=== PATIENT | male | born 1980 | race Caucasian/White ===

== ENCOUNTER 2020-03-17 10:28 | Emergency (ER) | payer OTHER ==
--- NOTE | 2020-03-17 10:53 | TELE ---
HPI Do you have fever,cough or shortness of breath?: Yes - General Reason For Visit: COVID19 Time Seen by Provider: 03/17/20 10:48 History Source: Patient Exam Limitations: No Limitations - History of Present Illness Timing/Duration: intermittent Severity: reports: mild Associated Symptoms: reports: headaches. denies: cough, fever/chills, na usea/vomiting, rash, seizure, shortness of breath, syncope, weakness 03/17/20 10:48 Patient with no significant past medical history present to [facility] urgent care for COVID testing due to having intermittent GOMEZ with malaise for 2 days. 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 Pts is getting tested and pt also wants to be tested for covid. Denies fever, chills, shortness of breath, cough, palpitation. Denies recent travel. Denies any other symptoms. Patient has been taking [id number] medication for his symptoms Review of Systems - Review of Systems Able to Perform ROS?: Yes Limited Lithuanian proficient: No Constitutional: No: Chills, Fever, Malaise HEENTM: No: Symptoms Reported, See HPI, Eye Pain, Blurred Vision, Tearing, Recent change in vision, Double Vision, Cataracts, Ear Pain, Ocular Prothesis, Ear Discharge, Nose Pain, Nose Congestion, Tinnitus, Nose Bleeding, Hearing Loss, Throat Pain, Throat Swelling, Mouth Pain, Dental Problems, Difficulty Swallowing, Mouth Swelling, Other Respiratory: No: Symptoms reported, See HPI, Cough, Orthopnea, Shortness of Breath, SOB with Exertion, SOB at Rest, Stridor, Wheezing, Productive cough, Hemoptysis, Other Cardiac (ROS): No: Symptoms Reported, See HPI, Chest Pain, Edema, Irregular Heart Rate, Lightheadedness, Palpitations, Syncope, Chest Tightness, Other ABD/GI: No: Symptoms Reported, Nausea, Vomiting Musculoskeletal: No: Symptoms Reported Integumentary: No: Symptoms Reported Neurological: Yes: Symptoms reported, See HPI, Headache. No: Numbness, Paresthesia, Unsteady Gait, Dizziness All Other Systems: Reviewed and Negative *Physical Exam - Physical Exam General Appearance: Yes: Nourished, Appropriately Dressed. No: Apparent Distress HEENT: positive: Normal ENT Inspection Respiratory/Chest: negative: Respiratory Distress, Accessory Muscle Use Musculoskeletal: positive: Normal Inspection Extremity: positive: Normal Inspection, Normal Range of Motion Integumentary: positive: Normal Color Neurologic: positive: Fully Oriented, Alert, Normal Mood/Affect, Normal Response - Medical Decision Making 03/17/20 10:53 Patient with no significant past medical history present to [facility] urgent care for COVID testing due to having intermittent GOMEZ with malaise for 2 days. 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 Pts is getting tested and pt also wants to be tested for covid. Denies fever, chills, shortness of breath, cough, palpitation. Denies recent travel. Denies any other symptoms. Patient has been taking [id number] medication for his symptoms Patient afebrile and in no acute distress. Discussed with patient self quarantine instructions if symptomatic until negative test. COVID test and COVID antibody test ordered as per patient request. Patient stable for discharge Discharge Diagnosis at time of Disposition: Encounter by telehealth for suspected COVID-19 - Referrals - Patient Instructions - Discharge Disposition: HOME Condition at time of Disposition: Stable
== END 2020-03-17 11:57 | disposition home or self-care (01) ==
LOC: JVIRT 10:28
DX: Z11.59 Encounter for screening for other viral diseases (principal)
CPT/HCPCS: 36415; 86769; Q3014-GT; U0003

== ENCOUNTER 2020-05-16 09:28 | Emergency (ER) | payer OTHER | END 2020-05-16 10:04 | disposition home or self-care (01) | LOC: JVIRT 09:28 | DX: Z11.59 Encounter for screening for other viral diseases (principal) | CPT/HCPCS: C9803; G2012-GT; Q3014-GT; U0003 ==

== ENCOUNTER 2022-06-04 12:30 | Emergency (ER) | payer OTHER ==
[2022-06-04] MEDS ORDERED: SODIUM CHLORIDE 1,000 ML IV STA (12:40)
[2022-06-04] MEDS ORDERED: ACETAMINOPHEN 1000 MG/100 ML BAG IVPB ONE (12:40)
[2022-06-04 12:52] VITALS: BP 132/76; PULSE 87; RESP 18; TEMP 97.8; BMI 31.1
[2022-06-04] MEDS ORDERED: ACETAMINOPHEN INJECTION 100 ML IVPB ONE (13:05)
[2022-06-04 13:21] LABS: HEMATOCRIT 40.1 % (35.4-49); HEMOGLOBIN 13.9 G/dL (11.7-16.9); MCHC 34.7 g/dl (32.0-35.9); MEAN CELL VOLUME 89.5 fl (80-96); MEAN PLT VOLUME 8.4 fl (7.5-11.1); PLATELET COUNT 225.8 10^3/uL (134-434); RBC 4.48 10^6/uL (4.00-5.60); RDW 13.9 % (11.9-15.9); WHITE BLOOD COUNT 10.8 10^3/uL (4.0-10.8)
[2022-06-04 13:22] LABS: ALBUMIN 3.8 g/dl (3.4-5.0); BILIRUBIN,TOTAL 0.6 mg/dl (0.2-1); CALCIUM 8.7 mg/dl (8.5-10); CREATININE 0.9 mg/dl (0.55-1.3); TOT PROT 7.6 g/dl (6.4-8.2)
[2022-06-04 14:37] LABS: PLATELET ESTIMATE ADEQUATE
[2022-06-04] MEDS ORDERED: AMOX TR/POT CLAV 875MG/125MG TABLETS (FP) PO ONE (15:13)
[2022-06-04] MEDS ORDERED: AMOX TR/POT CLAV 875MG/125MG TABLETS (FP) ONE (15:25)
== END 2022-06-04 15:48 | disposition home or self-care (01) ==
LOC: FER 12:30
PROC: 3E033NZ Introduction of Analgesics, Hypnotics, Sedatives into Peripheral Vein, Percutaneous Approach (ICD-10-PCS; principal; 2022-06-04)
PROC: 3E0337Z Introduction of Electrolytic and Water Balance Substance into Peripheral Vein, Percutaneous Approach (ICD-10-PCS; 2022-06-04)
DX: K52.9 Noninfective gastroenteritis and colitis, unspecified (principal)
CPT/HCPCS: 0241U-QW; 36415; 74177-TC; 80053; 81003; 85027; 87086; 87186; 99285-25; Q9967